=== PATIENT | male | born 2000 | race Caucasian/White ===

== ENCOUNTER 2021-04-23 11:27 | Emergency (ER) | payer OTHER, SELFPAY ==
[2021-04-23 11:47] VITALS: BP 148/85; PULSE 60; RESP 18; O2SAT 97; BMI 26.9
--- NOTE | 2021-04-23 11:53 | CT_ITS ---
WS: [id number] CT ABDOMEN PELVIS TECHNIQUE: Contrast-enhanced CT of the abdomen and pelvis with coronal and sagittal reformatted image s. CLINICAL INFORMATION: rlq pain COMPARISON: None. DLP: 1518.[address] scans at [facility] use at least one of these dose optimization techniques: automated e xposure control; mA and/or kV adjustment per patient size (includes targeted exams where dose is matc hed to clinical indication); or iterative reconstruction. FINDINGS: Normal liver. Normal portal vein and splenic vein. Normal spleen. Normal GE junction. Lung bases are well aerated. Normal pancreatic parenchymal enhancement. Adrenal glands are normal. Normal renal pare nchymal enhancement. No hydronephrosis. Normal caliber abdominal aorta. No free fluid in the abdomen or pelvis. Normal sigmoid colon. No evidence of high-grade small or larg e bowel obstruction. No evidence of acute appendicitis. Appendix appears to be air-filled and normal. A few prominent lymph nodes in the right lower quadrant can be seen with mesenteric adenitis. Air-flu id level in the stomach Normal lumbar spine. CT/CT abdomen pelvis w con* [id number] IMPRESSION: 1. No evidence of acute appendicitis. Appendix appears to be air-filled. 2. Prominent lymph nodes in the right lower quadrant can be seen with mesenter ic adenitis. 3. No evidence of small or large bowel obstruction. 4. No hydronephrosis in either kidney. 5. No free fluid in the abdomen or pelvis. No other significant findings.
[2021-04-23 12:07] VITALS: BP 147/67; PULSE 78; RESP 16; O2SAT 100
[2021-04-23 12:12] LABS: Basophils % 0.7 %; Eosinophils # 0.1 10^3/uL (0.0-0.8); Eosinophils % 1.4 %; Hematocrit 43.8 % (42.0-52.0); Hemoglobin 15.7 g/dL (11.7-16.6); Lymphocytes # 2.4 10^3/uL (0.8-4.8); Lymphocytes % 41.1 %; Mean Corpuscular HGB Conc 35.8 g/dL (30.0-36.0); Mean Corpuscular Volume 83.7 fl (80-94); Mean Platelet Volume 9.6 fL (7.4-10.4); Monocytes # 0.5 10^3/uL (0.2-0.9); Monocytes % 7.9 %; Neutrophils # 2.85 10^3/uL (1.8-7.7); Neutrophils % 48.7 %; Nucleated Red Blood Cells % 0 %; Platelet Count 210 10^3/cmm (130-400); Red Blood Count 5.23 10^6/uL (4.1-5.3); Red Cell Distribution Width 12.1 % (12.1-15.1); White Blood Count 5.8 10^3/uL (4.0-10.0)
--- NOTE | 2021-04-23 12:17 | W.ED.ABDPA2 ---
HPI - Abdominal Pain General: Chief Complaint: Abdominal Pain Stated Complaint: RUQ ABD PAIN Time Seen by Provider: 04/23/21 11:42 History of Present Illness: HPI narrative: Patient is a 21-year-old male with no significant past medical history. He is here with complaints of right lower quadrant pain. This is been going on since Tuesday. Started in the epigastrium is migrated to his right lower quadrant. Has not had any fevers chills nausea vomiting or diarrhea. Has had some constipation. Was seen in urgent care yesterday no imaging was performed a outpatient CT was scheduled for next Tuesday but his pain worsened overnight so he came here for evaluation. No history of abdominal surgeries no history of appendectomy. Has been taking ibuprofen for pain last food intake was 9:00 this morning Denies fevers chills chest pain nausea vomiting diarrhea altered mental status syncope rash Review of Systems General: Reports: 10 or more systems reviewed and unremarkable except in HPI and below Physical Exam Const: COMMON NORMALS: no acute distress, average body habitus, patient oriented x3, no limitations, healthy appearing, alert and well nourished HENMT: COMMON NORMALS: normocephalic, atraumatic, hearing grossly normal bilaterally, external ears normal, Normal external nose present and Normal nasal mucous membranes and turbinates present HEAD & SCALP: normocephalic and atraumatic NOSE: Normal external nose present and Normal nasal mucous membranes and turbinates present EXTERNAL EAR: Yes external ears normal Eye: COMMON NORMALS: EOMs intact bilaterally and conjunctivae normal CONJUNCTIVA: Yes conjunctivae normal Neck/C-Spine: COMMON NORMALS: full ROM, no lymphadenopathy, supple and no meningeal signs Chest: COMMONS NORMALS: normal inspection of the chest Resp: COMMON NORMALS: normal respiratory effort, No retractions, No use of accessory muscles and clear to auscultation bilaterally AUSCULTATION: clear to auscultation bilaterally Cardio: COMMON NORMALS: regular rate and regular rhythm RATE: regular rate RHYTHM: regular rhythm GI: COMMON NORMALS: Normal to inspection, nondistended, normoactive bowel sounds present and Soft to palpation INSPECTION: Yes normal to inspection PALPATION: Yes Soft to palpation, Yes Tenderness to palpation present (GI) Details: RLQ, No Guarding due to palpation present (GI), No Rigid due to palpation and No Rebound tenderness present PERCUSSION: normal to percussion RECTAL EXAM: Yes deferred : SCROTUM: Yes testes descended bilaterally, Yes Cremasteric reflex present and No inguinal hernia TESTES: Yes testicular lie normal, No Enlarged testicle(s) present, No testicular swelling, No testicular tenderness, No testicular mass, No epididymides normal, No blue dot sign and No high-riding testicle Extremity: COMMON NORMALS: normal to inspection, full ROM and capillary refill normal Neuro: COMMON NORMALS: patient oriented x3 SENSORIUM/ORIENTATION: Yes alert MENINGEAL SIGNS: Yes no meningeal signs Course ED course: Patient continues to do well. CT showed mesenteric adenitis showed air in the appendix consistent with a communication with: But no necrosis no inflammatory process. Discussed findings with the surgeon on-call and agreed this was unlikely appendicitis. Will discharge patient with home care instructions and return precautions as well. This point he is well-appearing nontoxic vital signs are normal no acute distress etiology of symptoms seems benign he is appropriate for discharge Vital Signs: Vital signs: Vital Signs Pulse Rate 78 04/23/21 12:07 Respiratory Rate 16 04/23/21 12:07 Blood Pressure 147/67 04/23/21 12:07 Pulse Oximetry 100 04/23/21 12:07 MDM - Abdominal Pain MDM Narrative: Medical decision making narrative: Patient is a 21-year-old male here with right lower quadrant abdominal pain differential includes appendicitis kidney stone constipation gastroenteritis Migration of pain from periumbilical to right lower quadrant certainly has some concerns for appendicitis. Will get CBC CMP abdominal and pelvis CT as well. Patient is in no acute distress no signs or symptoms of sepsis does not need immediate resuscitation pain is mild Medical Records: Attestation: I reviewed the patient's medical records. Lab Data: Attestation: I reviewed the patient's lab results. Labs: Lab Results 04/23/21 04/23/21 04/23/21 12:05 12:05 12:37 WBC 5.8 10^3/uL 10^3/ uL (4.0-10.0) RBC 5.23 10^6/uL 10^6 /uL (4.1-5.3) Hgb 15.7 g/dL g/dL (11.7-16.6) Hct 43.8 % % (42.0-52.0) MCV 83.7 fl fl (80-94) MCH 30.0 pg pg (28.0-34.0) MCHC 35.8 g/dL g/dL (30.0-36.0) RDW 12.1 % % (12.1-15.1) Plt Count 210 10^3/cmm 10^3 /cmm (130-400) MPV 9.6 fL fL (7.4-10.4) Neut % (Auto) 48.7 % % Lymph % (Auto) 41.1 % % Barber % (Auto) 7.9 % % Eos % (Auto) 1.4 % % Baso % (Auto) 0.7 % % Neut # (Auto) 2.85 10^3/uL 10^3 /uL (1.8-7.7) Lymph # (Auto) 2.4 10^3/uL 10^3/ uL (0.8-4.8) Barber # (Auto) 0.5 10^3/uL 10^3/ uL (0.2-0.9) Eos # (Auto) 0.1 10^3/uL 10^3/ uL (0.0-0.8) Baso # (Auto) 0.0 10^3/uL 10^3/ uL (0.0-0.1) Nucleated RBC % (a uto) 0 % % Nucleated RBCs # 0.0 /100WBC /100W BC Sodium 139 mmol/L mmol/L (136-145) Potassium 3.8 mmol/L mmol/L (3.5-5.1) Chloride 105 mmol/L mmol/L (98-107) Carbon Dioxide 22 mmol/L mmol/L (22-29) Anion Gap 15.8 (5-19) BUN 11 mg/dL mg/dL (6-20) Creatinine 0.8 mg/dL mg/dL (0.7-1.2) GFR Calculation 122.0 mL/min mL/m in (90-130) Glucose 93 mg/dL mg/dL (65-115) Calculated Osmolal ity 287 mOsm/kg mOsm/ kg (285-295) Calcium 8.8 mg/dL mg/dL (8.5-10.5) Total Bilirubin 0.4 mg/dL mg/dL (0.15-1.2) AST 23 U/L U/L (0-40) ALT 25 U/L U/L (0-41) Alkaline Phosphata se 59 IU/L IU/L (40-130) Total Protein 7.1 g/dL g/dL (6.6-8.7) Albumin 4.2 g/dL g/dL (3.5-5.2) Globulin 2.9 g/dL g/dL (1.3-4.6) Urine Color Straw (Yellow) Urine Appearance Hazy A (CLEAR) Urine pH 9 H (5-7) Ur Specific Gravit y 1.015 (1.005-1.030) Urine Protein Neg (Negative) Urine Glucose (UA) Norm (Normal) Urine Ketones Negative (Negative) Urine Blood Neg (Negative) Urine Nitrate Negative (Negative) Urine Bilirubin Neg (Negative) Prot Sulfosalicyli c Acd Negative (Negative) Urine Urobilinogen Norm mg/dL mg/dL (Negative) Ur Leukocyte Simona ase Negative (Negative) Discharge Plan Discharge Condition: Stable Prescriptions: No Action No Known Home Medications RF: 0 Discharge Orders: Discharge ED (Routine); Ordered 04/23/21 Ordered By: Brown Conley Referrals: Alvin Durham DO [Primary Care Provider] - 4-7 days Discharge Diet: Usual diet Discharge Activity: Resume usual activity Patient Instructions: Abdominal Pain (ED) Activity Restrictions/Additional Instructions: You can take Tylenol or ibuprofen for pain. He can also use a heating pad. Return to the emergency department with fever over 101.3, worsening symptoms nausea or severe pain. Follow-up with primary care provider in 3 to 5 days Coding Level of Care Code ED Is Technician for Marquise Fwd Exam Comprehensive
[2021-04-23] MEDS: iohexol 300 mg/mL 100 mL Btl IV (12:42)
[2021-04-23 12:48] LABS: Alanine Aminotransferase 25 U/L (0-41); Albumin Level 4.2 g/dL (3.5-5.2); Alkaline Phosphatase 59 IU/L (40-130); Anion Gap 15.8 (5-19); Aspartate Amino Transferase 23 U/L (0-40); Blood Urea Nitrogen 11 mg/dL (6-20); Calcium 8.8 mg/dL (8.5-10.5); Carbon Dioxide 22 mmol/L (22-29); Chloride 105 mmol/L (98-107); Globulin 2.9 g/dL (1.3-4.6); Glucose 93 mg/dL (65-115); Osmolality Calculated 287 mOsm/kg (285-295); Potassium 3.8 mmol/L (3.5-5.1); Sodium 139 mmol/L (136-145); Total Bilirubin 0.4 mg/dL (0.15-1.2); Total Protein 7.1 g/dL (6.6-8.7)
[2021-04-23 13:08] LABS: Add Urine Microscopic? NO; Charge for UA Resulting for Rev
[2021-04-23 13:22] LABS: Bilirubin Urine Neg (Negative); Blood Urine Neg (Negative); Glucose Urine UA Norm (Normal); Ketones Urine Negative (Negative); Leukocyte Esterase Urine Negative (Negative); Nitrate Urine Negative (Negative); Protein Urine Neg (Negative); Specific Gravity, Urine 1.015 (1.005-1.030); Sulfosalicylic Acid Urine Negative (Negative); Urine Appearance Hazy (CLEAR); Urine Color Straw (Yellow); Urobilinogen Urine Norm (Negative); pH Urine 9 (5-7)
[2021-04-23 13:44] VITALS: BP 123/60; PULSE 50; O2SAT 99
== END 2021-04-23 13:46 | disposition home or self-care (01) ==
PROVIDERS: Emergency Provider Family Medicine; PCP Family Medicine
DX: R10.11 Right upper quadrant pain (principal)
CPT/HCPCS: 74177; 80053; 81003; 85025; 99283; Q9967